=== PATIENT | female | born 1965 | race Caucasian/White ===

== ENCOUNTER → 2017-12-30 | Outpatient (CLI) | payer OTHER ==
--- NOTE | 2018-01-02 07:33 | MAMMOGRAPHY REPORT ---
BILATERAL DIGITAL SCREENING MAMMOGRAM TOMOSYNTHESIS WITH CAD: 12/30/2017 CLINICAL HISTORY: Routine screening. Patient has no complaints. TECHNIQUE: Breast tomosynthesis in addition to standard 2D mammography was performed. Current study was also evaluated with a Computer Aided Detection (CAD) system. COMPARISON: Comparison is made to exams dated: 06/11/2016 mammogram, 12/24/2014 mammogram, 11/28/2013 ma mmogram, 10/04/2012 mammogram, 09/21/2011 mammogram, and 09/22/2012 mammogram - [facility] enter. BREAST COMPOSITION: There are scattered areas of fibroglandular density in both breasts. FINDINGS: No suspicious masses, calcifications, or areas of architectural distortion are noted in ei ther breast. There has been no significant interval change compared to prior exams. IMPRESSION: ACR BI-RADS CATEGORY 1: NEGATIVE There is no mammographic evidence of malignancy. A 1 year screening mammogram is recommended. The pa tient will receive written notification of the results. Approximately 10% of breast cancers are not detected with mammography. A negative mammographic report should not delay biopsy if a clinically suggestive mass is present. Siena Maki M.D. /:12/30/2017 15:51:09 Judicial Clerk: Katiuska Delong M, [facility] letter sent: Normal 1/2 BI-RADS Code: ACR BI-RADS Category 1: Negative
== END | disposition home or self-care (01) ==
LOC: C.MAMM 14:34
PROVIDERS: ATTEND Nurse Practitioner Family
DX: Z12.31 Encounter for screening mammogram for malignant neoplasm of breast (principal)

== ENCOUNTER → 2018-02-22 | Outpatient (CLI) | payer OTHER ==
--- NOTE | 2018-02-22 14:52 | DIAGNOSTIC IMAGING REPORT ---
PELVIC ULTRASOUND, TRANSABDOMINAL AND TRANSVAGINAL HISTORY: HEAVY MENSTRAL BLEEDING COMPARISON: None. FINDINGS: Uterus: 8.5 x 5.3 x 4.5 cm. There are 2-3 uterine masses with the largest measuring 2.9 cm at the posterior wall of the uterine fundus. All of these masses are located within the uterine fundus. These likely represent fibroids. The larger lesion partially distorts the endometrium. Endometrial stripe: Not well visualized due to the uterine fibroids. Right ovary: Obscured by overlying bowel gas. Left ovary: Normal in size and demonstrates normal color flow. Miscellaneous:No pelvic free fluid. IMPRESSION: 1. There are 2 to 3 uterine masses with the largest measuring 2.9 cm at the fundus. The larger lesion partially distorts the endometrium. These likely represent fibroids. 2. The endometrial stripe is not well visualized due to the uterine masses. 3. The right ovary was not visualized due to overlying bowel gas. Normal left ovary. Electronically signed by: Bean Flowers M.D. 02/22/2018 2:51 PM Dictated Date/Time: 02/22/2018 2:47 PM
== END | disposition home or self-care (01) ==
LOC: C.ULTR 14:00
PROVIDERS: ATTEND Obstetrics & Gynecology
DX: N92.0 Excessive and frequent menstruation with regular cycle (principal); N85.9 Noninflammatory disorder of uterus, unspecified